=== PATIENT | male | born 1995 | race Asian ===

== ENCOUNTER 2017-12-06 09:09 | Emergency (ER) | payer BC, OTHER ==
[~2017-12-06] VITALS: Ht 182.9 cm; Wt 128.6 kg
[2017-12-06] MEDS ORDERED: PROCHLORPERAZINE 5 MG/ML, 2ML ONE (09:42)
[2017-12-06] MEDS ORDERED: DIPHENHYDRAMINE 50 MG/ML, 1ML ONE (09:42)
[2017-12-06] MEDS ORDERED: SODIUM CHLORIDE FLUSH 10ML SYR IVF ONE (10:00)
[2017-12-06] MEDS ORDERED: DIPHENHYDRAMINE 50 MG/ML, 1ML IVPush ONE (10:00)
[2017-12-06] MEDS ORDERED: PROCHLORPERAZINE 5 MG/ML, 2ML IVPush ONE (10:00)
[2017-12-06] MEDS ORDERED: SODIUM CHLORIDE 0.9% 1,000ML IVBOLUS ONE (10:00)
[2017-12-06] MEDS ORDERED: KETOROLAC 30 MG/1 ML ONE (11:45)
[2017-12-06] MEDS ORDERED: KETOROLAC 30 MG/1 ML IVPush ONE (12:00)
[2017-12-06 13:17] VITALS: BP 116/77
== END 2017-12-06 13:18 | disposition home or self-care (01) ==
LOC: ED 12:16
DX: G43.009 Migraine without aura, not intractable, without status migrainosus (principal)
CPT/HCPCS: 96374; 96375; 99284; J0780; J1200; J1885; J7030; 96361